=== PATIENT | female | born 1965 | race African-American/Black ===

== ENCOUNTER → 2018-04-22 | Outpatient (CLI) | payer OTHER ==
[2015-04-05 16:40] VITALS: BP 135/78
[~2018-04-22] MED LIST: LIDOCAINE 2%/EPI 1:100,000 20 ML VIAL. IJ ONE; LIDOCAINE WITH 8.4% SOD BICARB 3 ML DISP.SYRIN. INJ ONE
--- NOTE | 2018-04-23 17:09 | PATHOLOGY ---
[facility] Accession Number: [id number] . 01 Material submitted: . LEFT BREAST TISSUE . 01 Clinician provided ICD-10: R92.1 . 01 Clinical history: . Left breast calcifications . 02 Diagnosis: Breast tissue, left breast stereotactic biopsies: - Fibroadenoma and fibroadenomatous change. - Sclerosing adenosis, focal. - Calcifications identified. . (JPM:mml; 04/23/18) QL/04/23/2018 . 02 Comment: There are calcifications associated with fibroadenoma and fibroadenomatous change and with sclerosing adenosis. There is no evidence of malignancy. . (JPM:mml; 04/23/18) . 02 Electronically signed: . Torres Sewell MD, Pathologist NPI- [id number] . 01 Gross description: . The specimen is received in formalin, labeled "Mozeke, Maria Isabel, left breast" and consists of an orange cassette containing multiple needle cores of yellow fibroadipose tissue measuring 2.6 x 1.0 x 0.4 cm which are transferred to cassette A1. Also received are multiple additional needle cores of yellow fibroadipose tissue measuring 2.0 x 1.5 x 0.3 cm in aggregate which are entirely submitted in A2-A3. The specimen was obtained at 8:25 AM on 04/22/18 and placed in formalin at 8:41 AM. The cold ischemic time is 16 minutes and the total formalin fixation time is greater than 6 hours but less than 72 hours. (SDY; 04/22/2018) SYU/SYU . 02 Pathologist provided ICD-10: D24.2, N60.22 . 02 CPT . 759323 Specimen Comment: A courtesy copy of this report has been sent to Specimen Comment: [phone], , . Specimen Comment: Report sent to ,DR MUHAMMAD / DR DAVID Performed at: 01 [facility] [address] [facility] [address], [place] [id number] MD Lui Baltazar MD Phone: [phone] Performed at: 02 [facility] [address], [place] [id number] MD Torres Sewell MD Phone: [phone]
--- NOTE | 2018-04-24 08:21 | RAD ---
Stereotactic left breast biopsy, 04/22/2018: History: Suspicious microcalcifications Previous mammograms demonstrated a cluster of suspicious microcalcifications in the posterolateral aspect of the left breast. Under local anesthesia, aseptic conditions and stereotactic guidance the Skwibl biopsy instrument was passed into the area of microcalcification via a superior approach. Multiple 9 gauge vacuum-assisted core samples were obtained. Specimen mammography demonstrated the targeted microcalcifications within the specimens. A biopsy marker was deposited the biopsy site. The biopsy instrument was removed and hemostasis obtained. Two-view postprocedural mammograms were obtained on a separate digital mammographic unit, to document position of the biopsy marker. The patient tolerated the procedure well and left the department in good condition. The subsequent pathology report indicated the presence of a fibroadenoma. This is a concordant finding. BI-RADS 2-benign findings
--- NOTE | 2018-04-24 08:21 | RAD ---
DATE: 04/22/2018 EXAM: DIGITAL DIAGNOSTIC LT The study was reported in conjunction with the stereotactic left breast biopsy.
== END | disposition home or self-care (01) ==
LOC: MAMMO 07:37
PROVIDERS: ATTEND Radiology Diagnostic Radiology
DX: D24.2 Benign neoplasm of left breast (principal); N60.22 Fibroadenosis of left breast; J45.909 Unspecified asthma, uncomplicated; I10 Essential (primary) hypertension; G89.29 Other chronic pain; Z90.710 Acquired absence of both cervix and uterus; Z88.2 Allergy status to sulfonamides; Z86.73 Personal history of transient ischemic attack (TIA), and cerebral infarction without residual deficits; Z98.51 Tubal ligation status; Z72.0 Tobacco use; Z98.890 Other specified postprocedural states
CPT/HCPCS: 19081; 77022; 77065; 88305; C1713; J3490; 19085